=== PATIENT | male | born 1970 | race Caucasian/White ===

== ENCOUNTER 2020-06-15 12:23 | Emergency (ER) | payer BC, OTHER ==
[~2020-06-15] VITALS: Ht 177.8 cm; Wt 92.8 kg
[2020-06-15 12:23] VITALS: BP 135/88
[2020-06-15] MEDS ORDERED: PREV15CA18 PO (12:55)
== END 2020-06-15 13:25 | disposition home or self-care (01) ==
LOC: M ED 12:23
DX: R09.89 Other specified symptoms and signs involving the circulatory and respiratory systems (principal)